=== PATIENT | female | born 1965 | race Caucasian/White ===

== ENCOUNTER → 2018-06-19 | Outpatient (CLI) | payer OTHER | LOC: BRMIMAGING 08:46 | PROVIDERS: ATTEND Obstetrics & Gynecology | DX: M85.9 Disorder of bone density and structure, unspecified (principal); Z12.31 Encounter for screening mammogram for malignant neoplasm of breast; Z13.820 Encounter for screening for osteoporosis; E28.39 Other primary ovarian failure ==